=== PATIENT | female | born 1960 | race Caucasian/White ===

== ENCOUNTER → 2023-02-20 | Outpatient (CLI) | payer OTHER ==
--- NOTE | 2023-02-20 13:08 | BD ---
EXAMINATION TYPE: Axial Bone Density DATE OF EXAM: 02/20/2023 CLINICAL HISTORY: 63 years old Female. ICD-10 CODE: Z13.820 SCREENING FOR OSTEOPOROSIS Height: 60.75" Weight: 201.5lbs FRAX RISK QUESTIONS: Alcohol (3 or more units per day): No Family History (Parent hip fracture): No Glucocorticoids (More than 3mos): No (Ex: prednisone, prednisolone, methylprednisolone, dexamethasone, and hydrocortisone). History of Fracture in Adulthood: Yes, right foot age 26 Secondary Osteoporosis: 1. Type 1 Diabetes: No 2. Hyperthyroidism: No 3. Menopause before 45: No 4. Malnutrition: No 5. Chronic liver disease: No Rheumatoid Arthritis: No Current Tobacco Use: No RISK FACTORS HISTORY OF: Hip Fracture (Right/Left): No Spine Fracture: No History of Wrist Fracture: No Surgery to Spine/Hip(right/left)/Wrist (right/left): No Family History of Osteoporosis: Yes, Paternal Aunt Active: Yes Diet low in dairy products/other sources of calcium: No Postmenopausal woman: Yes Lost more than 2 inches in height since high school: No Frequent falls: No Poor Health: No Hyperparathyroidism: No Adrenal Insufficiency: No MEDICATIONS: Prednisone or other steroids: No Thyroid Medications: No Osteoporosis Medications: No Additional Medications: Anti-anxiety Additional History: None EXAM MEASUREMENTS: Bone mineral densitometry was performed using the [employer] System. Bone mineral density as measured about the Lumbar spine is: ----- L1-L4(G/cm2): 1.152 T Score Values are as follows: ----- L1: -1.1 ----- L2: -0.2 ----- L3: 0.1 ----- L4: -0.1 ----- L1-L4: -0.2 Z Score Values are as follows: ----- L1: -0.6 ----- L2: 0.2 ----- L3: 0.6 ----- L4: 0.3 ----- L1-L4: 0.2 Baseline Bone mineral density about the R hip (g/cm2): 0.879 Bone mineral density about the L hip (g/cm2): .0922 T Score values are as follows: -----R Neck: -1.4 -----L Neck: -1.6 -----R Total: -1.0 -----L Total: -0.7 Z Score values are as follows: -----R Neck: -0.6 -----L Neck: -0.8 -----R Total: -0.6 -----L Total: -0.3 Baseline FRAX%s: The graph provided illustrates a 13.3% chance for a major osteoporotic fx and a 1.3% chance f or the hips probability for fx in 10 years time. IMPRESSION: Osteopenia (T Score between -2.5 and -1). There is slightly increased risk of fracture and the patient may be considered for treatment. Re-Screen 2-5 years. NOTE: T-SCORE=SD OF THE YOUNG ADULT MEAN.
--- NOTE | 2023-02-21 08:41 | MM ---
Reason for Exam: Screening (asymptomatic). Baseline mammogram. Patient History: Menarche at age 12. Patient has no children. Postmenopausal. Maternal aunt had breast cancer, age 56. Risk Values: Gianna 5 year model risk: 1.9%. NCI Lifetime model risk: 8.4%. Prior Study Comparison: Patient's first Mammogram. Tissue Density: There are scattered fibroglandular densities. Findings: Analyzed By CAD. Benign calcifications within both breasts. No architectural distortion within either breast. No suspicious mass within the right breast. There is a round 5 mm mass demonstrated within the inner lower right breast at middle depth. There are additionally 3 asymmetries demonstrated within the superior aspect of the left breast on the MLO view. Overall Assessment: Incomplete: need additional imaging evaluation, BI-RAD 0 Management: Diagnostic Breast Ultrasound of the left breast. A clinical breast exam by your physician is recommended on an annual basis and results should be correlated with mammographic findings. [facility] will attempt to contact patient to return for supplemental views and ultrasound if indicated. Electronically signed and approved by: Lane Nicholas D.O.
== END | disposition home or self-care (01) ==
LOC: RADMAMWWP 11:02
PROVIDERS: ATTEND Internal Medicine
DX: Z12.31 Encounter for screening mammogram for malignant neoplasm of breast (principal); Z13.820 Encounter for screening for osteoporosis; M85.89 Other specified disorders of bone density and structure, multiple sites; Z78.0 Asymptomatic menopausal state; Z80.3 Family history of malignant neoplasm of breast
CPT/HCPCS: 77067; 77080

== ENCOUNTER → 2023-02-26 | Outpatient (CLI) | payer OTHER ==
--- NOTE | 2023-02-26 10:35 | USB ---
Reason for Exam: Additional evaluation requested from abnormal screening. Patient History: Menarche at age 12. Patient has no children. Postmenopausal. Maternal aunt had breast cancer, age 56. Risk Values: Gianna 5 year model risk: 1.9%. NCI Lifetime model risk: 8.4%. Technique: Method: Whole Breast Handheld. Prior Study Comparison: 02/20/2023 Bilateral MG screening mammo w CAD, [facility]. Findings: The whole breast of the left breast, the axilla of the left breast and the retroareolar of the left breast were scanned. A complete US of all four quadrants of the breast and retro-areolar region were reviewed. No solid or cystic masses are identified on images obtained. Overall Assessment: Probably benign, BI-RAD 3 Management: Diagnostic Mammogram of the left breast in 6 months. Precautionary short-term follow-up left breast mammogram. Results were given to the patient verbally at the time of exam. Electronically signed and approved by: Ozzie Araiza M.D.
== END | disposition home or self-care (01) ==
LOC: RADUSWWP 09:53
PROVIDERS: ATTEND Internal Medicine
DX: R92.8 Other abnormal and inconclusive findings on diagnostic imaging of breast (principal); Z80.3 Family history of malignant neoplasm of breast; Z78.0 Asymptomatic menopausal state

== ENCOUNTER → 2023-07-12 | Outpatient (CLI) | payer OTHER ==
--- NOTE | 2023-07-12 10:14 | CA ---
Transthoracic Echo Report Name: Lesia Olivas Age: 63 Gender: F : 1960 Exam Date: 07/12/2023 08:43 Exam Location: [facility] Ht (in): 63 Wt (lb): 221 Ordering Physician: Clive Hernandez MD Attending/Referring Phys: Manager Plant Daphney Horvath RDCS Procedure CPT: Indications: m79.89 Cardiac Hx: Technical Quality: Fair Contrast 1: Total Dose (mL): Contrast 2: Total Dose (mL): MEASUREMENTS (Male / Female) Normal Values 2D ECHO LV Diastolic Diameter PLAX 2.8 cm 4.2 - 5.9 / 3.9 - 5.3 cm LV Systolic Diameter PLAX 1.4 cm IVS Diastolic Thickness 1.6 cm 0.6 - 1.0 / 0.6 - 0.9 cm LVPW Diastolic Thickness 1.2 cm 0.6 - 1.0 / 0.6 - 0.9 cm LV Relative Wall Thickness 1.0 RV Internal Dim ED PLAX 3.1 cm LA Volume 70.9 cm??? 18 - 58 / 22 - 52 cm??? M-MODE Aortic Root Diameter MM 3.2 cm LA Systolic Diameter MM 3.7 cm LA Ao Ratio MM 1.2 DOPPLER AV Peak Velocity 114.6 cm/s AV Peak Gradient 5.3 mmHg AV Mean Velocity 90.0 cm/s AV Mean Gradient 3.4 mmHg AV Velocity Time Integral 26.0 cm AI Peak Velocity 388.3 cm/s AI Peak Gradient 60.3 mmHg AI Pressure Half Time 475.1 ms LVOT Peak Velocity 97.0 cm/s LVOT Peak Gradient 3.8 mmHg LVOT Velocity Time Integral 21.6 cm MV Area PHT 5.9 cm??? Mitral E Point Velocity 63.1 cm/s Mitral A Point Velocity 73.4 cm/s Mitral E to A Ratio 0.9 MV Deceleration Time 129.4 ms MV E' Velocity 7.7 cm/s Mitral E to MV E' Ratio 8.2 TR Peak Velocity 237.9 cm/s TR Peak Gradient 22.6 mmHg Right Ventricular Systolic Press 27.6 mmHg FINDINGS Left Ventricle Moderately increased left ventricular wall thickness. Left ventricular cavity size normal. Normal left ventricular systolic function with no obvious regional wall motion abnormalities. Left ventricular ejection fraction is estimated at 55-60 %. Right Ventricle Normal right ventricular size and function. Right ventricular systolic pressure within normal limits. Right Atrium Normal right atrial size. Left Atrium Moderately increased left atrial volume. Mitral Valve Structurally normal mitral valve. Mild mitral annular calcification. Trace to mild mitral regurgitation. Aortic Valve Trileaflet aortic valve. No aortic stenosis. Mild aortic regurgitation. Tricuspid Valve Structurally normal tricuspid valve. Mild tricuspid regurgitation. Pulmonic Valve Trace pulmonic regurgitation. Pericardium No pericardial effusion. Aorta Normal size aortic root and proximal ascending aorta. CONCLUSIONS Technically somewhat difficult study. LV size and systolic function is normal there is mild mitral annular calcification with mild mitral regurgitation. There is mild aortic and tricuspid regurgitation no pericardial effusion no significant pulmonary hypertension Previewed by: Dr. Michelle Dos Santos MD (Electronically Signed) Final Date: 12 July 2023 10:13
== END | disposition home or self-care (01) ==
LOC: RADECHMAIN 08:10
PROVIDERS: ATTEND Internal Medicine
DX: I08.3 Combined rheumatic disorders of mitral, aortic and tricuspid valves (principal); M79.89 Other specified soft tissue disorders
CPT/HCPCS: 93306

== ENCOUNTER → 2023-10-29 | Outpatient (CLI) | payer OTHER ==
[2023-10-29 10:02] VITALS: BP 121/77; PULSE 91; RESP 18; TEMP 98.4
--- NOTE | 2023-10-29 10:40 | P.HPOB ---
History of Present Illness H&P Date: 10/29/23 Chief Complaint: The patient is here for her routine gynecologic exam and ma mmogram. This is a 63-year-old G0 with an LMP of 2011. The patient is here to establish with this office. It has been more than 10 years since her last pelvic exam. She did have an abnormal mammogram that did require a left breast workup in January 2023. The workup in January was benign and a 6 month left diagnostic mammogram was recommended and she did that today and this was benign. She is without gynecologic complaints and denies any postmenopausal bleeding. She has not been sexually active for many years. Review of Systems She believes she has gained close to 30 pounds over the past year and attributes this to stress related to her mother's health issues. She denies respiratory, cardiac, or GI problems. Past Medical History Past Medical History: No Reported History Additional Past Medical History / Comment(s): Osteopenia, psoriasis. Leg edema. 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 History of Any Multi-Drug Resistant Organisms: None Reported Past Surgical History: No Surgical Hx Reported Past Anesthesia/Blood Transfusion Reactions: No Reported Reaction Past Psychological History: Anxiety Smoking Status: Never smoker Past Alcohol Use History: Rare (3 drinks per year.) Past Drug Use History: None Reported Additional History: She is single and has not been sexually active for more than 15 years. She does not work outside of the home. - Past Family History Father Family Medical History: Myocardial Infarction ([place]) Additional Family Medical History / Comment(s): . Paternal aunt had osteoporosis. Mother Family Medical History: Cancer, Hyperlipidemia, Hypertension, Renal Disease Additional Family Medical History / Comment(s): Renal cancer. Renal failure. Maternal aunt had breast cancer. Brother(s) Family Medical History: Diabetes Mellitus Additional Family Medical History / Comment(s): Parkinson's disease and psoriasis. Medications and Allergies Home Medications Medication Instructions Recorded Confirmed Type Furosemide [Lasix] 20 mg PO DAILY 10/29/23 10/29/23 History Nystatin [Nystop] 1 applic TOPICAL DIRECTED 10/29/23 10/29/23 History busPIRone HCL 5 mg PO DAILY 10/29/23 10/29/23 History Allergies Allergy/AdvReac Type Severity Reaction Status Date / Time No Known Allergies Allergy Unverified 10/29/23 09:31 Exam Vital Signs Temp Pulse Resp BP Pulse Ox 10/29/23 09:33 98.4 F 91 18 121/77 96 Intake and Output 10/28/23 10/29/23 10/29/23 22:59 06:59 14:59 Other: Weight 102.512 kg Height 5 foot 1 inch, weight 226 pounds, BMI 42.7. This is a well-developed well-nourished heavyset white female who is alert and oriented times 3 in no acute distress. HEENT: Within normal limits. NECK: Supple without mass or thyromegaly. CHEST AND LUNGS: Clear to auscultation. HEART: Regular rate and rhythm. BREASTS: Are without mass or discharge. Bilateral nipple inversion. The patient states she has had this for many years. AXILLARY EXAM: Negative for adenopathy. BACK: Negative for CVA tenderness. ABDOMEN: Soft, obese, nontender, without palpable masses. PELVIC EXAM: Normal external genitalia with mild atrophy. Cervix and vagina appear normal with mild atrophy and is consistent with nulliparity. There is no unusual discharge. There is no evidence of prolapse. The uterus is midposition, nongravid size and nontender. There are no palpable adnexal masses or tenderness. Bimanual examination is somewhat limited secondary to her size. RECTAL EXAM: Rectovaginal exam is negative for mass or tenderness and is negative for occult blood. EXTREMITIES: Nontender. IMPRESSION: 1. 63-year-old menopausal female with normal gynecologic exam. 2. History of osteopenia. PLAN: 1. Pap smear cotest was performed. This is her first Pap smear done in many years. I have recommended yearly exams. 2. Self breast awareness was discussed with the patient. We have also discussed symptoms associated with inflammatory breast cancer. 3. Diagnostic left mammogram was done today. This was in follow-up from her January mammogram screening and workup. Today's left diagnostic mammogram was benign. 5 month bilateral screening mammogram was recommended and the order slip was given to the patient for this. 4. Osteoporosis prevention was discussed. I have stressed the importance of adequate calcium, vitamin D and regular exercise. Recommended amounts of calcium and vitamin D were also discussed. Her last bone density test was done on 02/20/2023. I recommended repeating this in about 2-3 years. 5. Colorectal cancer screening was discussed and she states she had a negative Cologuard testing earlier this year. She will continue to do this type of screening through her PCP. 6. She was advised to return in one year for her annual well woman exam.
== END ==
LOC: WWCWWP 08:04
PROVIDERS: ATTEND Obstetrics & Gynecology
DX: M85.80 Other specified disorders of bone density and structure, unspecified site (principal); F41.9 Anxiety disorder, unspecified; Z78.0 Asymptomatic menopausal state; Z80.3 Family history of malignant neoplasm of breast

== ENCOUNTER → 2023-10-29 | Outpatient (CLI) | payer OTHER ==
--- NOTE | 2023-10-29 08:32 | MM ---
Reason for Exam: Follow-up at short interval from prior study. Last screening mammogram was performed 8 month(s) ago. Patient History: Menarche at age 12. Patient has no children. Postmenopausal. Maternal aunt had breast cancer, age 56. Risk Values: Gianna 5 year model risk: 1.9%. NCI Lifetime model risk: 8.4%. Prior Study Comparison: 02/20/2023 Bilateral MG screening mammo w CAD, [facility]. Tissue Density: Left: There are scattered fibroglandular densities. Findings: Analyzed By CAD. Pattern appears stable. Chronic nodularity remains stable. No suspicious groups of microcalcifications, spiculated or lobular masses, architectural distortion or other secondary signs of malignancy are mammographically apparent. Overall Assessment: Benign, BI-RAD 2 Management: Screening Mammogram of both breasts in 5 months. A negative mammogram report should not preclude additional follow up of suspicious palpable abnormalities. Patient should continue monthly self breast exam. A clinical breast exam by your physician is recommended on an annual basis and results should be correlated with mammographic findings. Electronically signed and approved by: Urbano Hawkins D.O. Radiologis
== END | disposition home or self-care (01) ==
LOC: RADMAMWWP 08:02
PROVIDERS: ATTEND Internal Medicine
DX: R92.322 Mammographic fibroglandular density, left breast (principal); Z78.0 Asymptomatic menopausal state; Z80.3 Family history of malignant neoplasm of breast
CPT/HCPCS: 77061; 77065